=== PATIENT | female | born 1970 | race Caucasian/White ===

== ENCOUNTER → 2022-08-26 | Outpatient (CLI) | payer BC, OTHER | LOC: M PLAIMG 12:01 | PROVIDERS: ATTEND Nurse Practitioner Adult Health | DX: R05.9 Cough, unspecified (principal) ==

== ENCOUNTER → 2024-05-28 | Outpatient (CLI) | payer BC | LOC: M RAD 12:26 | PROVIDERS: ATTEND Nurse Practitioner Adult Health | DX: R05.9 Cough, unspecified (principal); J45.40 Moderate persistent asthma, uncomplicated ==